=== PATIENT | male | born 1940 | race Caucasian/White ===

== ENCOUNTER 2018-06-26 13:24 | Emergency (ER) | payer MEDICARE ==
[~2018-06-26] VITALS: Ht 175.3 cm; Wt 78.9 kg
[~2018-06-26 13:24] MED LIST: ASPI81CH PO; Lopressor 25 mg25 MG PO; PRAV20 PO; Synthroid25 MCG PO; THYR60 PO
== END 2018-06-26 18:12 | disposition home or self-care (01) ==
LOC: ER 13:24
DX: S81.011A Laceration without foreign body, right knee, initial encounter (principal); E78.5 Hyperlipidemia, unspecified; E03.9 Hypothyroidism, unspecified; Z79.899 Other long term (current) drug therapy; Z79.82 Long term (current) use of aspirin; Z87.891 Personal history of nicotine dependence; W29.3XXA Contact with powered garden and outdoor hand tools and machinery, initial encounter
CPT/HCPCS: 12004; 73564; 99283-25

== ENCOUNTER → 2021-07-22 | Outpatient (CLI) | payer MEDICARE | END | disposition home or self-care (01) | LOC: LAB SHORT 11:00 | DX: D22.21 Melanocytic nevi of right ear and external auricular canal (principal) | CPT/HCPCS: 88305 ==